=== PATIENT | female | born 1980 | race Caucasian/White ===

== ENCOUNTER 2017-11-16 05:30 | Inpatient (IN) | payer OTHER ==
[~2017-11-16] VITALS: Ht 167.6 cm; Wt 86.2 kg
[~2017-11-16 05:30] MED LIST: METFORMIN HCL500 MG PO; OMEGA DHA92 MG PO; TOPROL XL50 M1 PO; VIT C-ROSE HIP500 MG PO
== END 2017-11-18 08:59 | disposition home or self-care (01) | DRG 747 ==
LOC: CIR.AMB 05:30 → OB/GYN 12:13
PROVIDERS: Obstetrics & Gynecology Maternal & Fetal Medicine
PROC: 0UVC7ZZ Restriction of Cervix, Via Natural or Artificial Opening (ICD-10-PCS; principal; 2017-11-16 16:15)
DX: N88.3 Incompetence of cervix uteri (principal)

== ENCOUNTER 2019-08-16 08:56 | Outpatient (CLI) | payer OTHER | END 2019-08-16 10:04 | disposition home or self-care (01) | LOC: NST 08:56 | DX: Z34.83 Encounter for supervision of other normal pregnancy, third trimester (principal) ==

== ENCOUNTER 2019-08-30 09:18 | Outpatient (CLI) | payer OTHER | END 2019-08-30 10:31 | disposition home or self-care (01) | LOC: NST 09:18 | DX: Z34.83 Encounter for supervision of other normal pregnancy, third trimester (principal) ==

== ENCOUNTER 2019-09-13 09:44 | Outpatient (CLI) | payer OTHER | END 2019-09-13 10:37 | disposition home or self-care (01) | LOC: NST 09:44 | DX: Z34.83 Encounter for supervision of other normal pregnancy, third trimester (principal) ==

== ENCOUNTER → 2019-10-04 08:35 | Outpatient (CLI) | payer OTHER | END | disposition home or self-care (01) | LOC: NST 08:35 | DX: O34.33 Maternal care for cervical incompetence, third trimester (principal) ==

== ENCOUNTER 2019-10-11 09:20 | Outpatient (CLI) | payer OTHER | END 2019-10-11 11:17 | disposition home or self-care (01) | LOC: NST 09:20 | DX: Z34.83 Encounter for supervision of other normal pregnancy, third trimester (principal) ==

== ENCOUNTER 2019-10-17 08:45 | Outpatient (CLI) | payer OTHER ==
[2019-10-17] MEDS ORDERED: PRENATAL PO (12:30)
[2019-10-17] MEDS ORDERED: LABETALOL HCL100 MG PO (12:31)
== END 2019-10-17 10:48 | disposition home or self-care (01) ==
LOC: NST 08:45
DX: Z34.83 Encounter for supervision of other normal pregnancy, third trimester (principal)

== ENCOUNTER 2019-10-17 11:00 | Inpatient (IN) | payer OTHER ==
[~2019-10-17] VITALS: Ht 167.6 cm; Wt 2.7 kg
[2019-10-17] MEDS ORDERED: PRENATAL PO (12:30)
[2019-10-17] MEDS ORDERED: LABETALOL HCL100 MG PO (12:31)
[2019-10-24] MEDS ORDERED: PEPCID AC20 MG PO (07:51)
[2019-10-24] MEDS ORDERED: METFORMIN HCL500 M1 PO (07:51)
[2019-10-24] MEDS ORDERED: PRENATAL + DHA1 EAC1 PO (07:52)
== END 2019-10-26 15:11 | disposition home or self-care (01) | DRG 788 ==
LOC: O/R 10-24 06:35 → OB/GYN 10-24 07:00
PROVIDERS: ADMIT Obstetrics & Gynecology
PROC: 4A1HXFZ Monitoring of Products of Conception, Cardiac Rhythm, External Approach (ICD-10-PCS; 2019-10-24)
PROC: 0UCC0ZZ Extirpation of Matter from Cervix, Open Approach (ICD-10-PCS; 2019-10-24)
PROC: 3E033VJ Introduction of Other Hormone into Peripheral Vein, Percutaneous Approach (ICD-10-PCS; 2019-10-24)
PROC: 10D00Z1 Extraction of Products of Conception, Low, Open Approach (ICD-10-PCS; principal; 2019-10-24 07:00)
DX: O34.33 Maternal care for cervical incompetence, third trimester (principal); O24.420 Gestational diabetes mellitus in childbirth, diet controlled; O13.4 Gestational [pregnancy-induced] hypertension without significant proteinuria, complicating childbirth; Z3A.37 37 weeks gestation of pregnancy; Z37.0 Single live birth